=== PATIENT | male | born 1995 | race African-American/Black ===

== ENCOUNTER 2022-01-23 23:33 | Emergency (ER) | payer MEDICAID ==
[~2022-01-23] VITALS: Ht 185.4 cm; Wt 100.0 kg
[2022-01-24] MEDS ORDERED: TETRACAINE 0.5% OPHTH DROPS 4ML BOTHEYE ONE (00:15)
[2022-01-24] MEDS ORDERED: FLUORESCEIN SODIUM 1MG/STRIP BOTHEYE ONE (00:15)
[2022-01-24] MEDS ORDERED: HYDROCODONE/ACETAMINOPHEN 5/325MG TABLET PO ONE (00:45)
[2022-01-24 02:11] VITALS: BP 140/82
[2022-01-24] MEDS ORDERED: KETO5DRO37 EACHEYE (03:17)
[2022-01-24] MEDS ORDERED: OFLO5DRO EACHEYE (03:17)
== END 2022-01-24 03:27 | disposition home or self-care (01) ==
LOC: ER 23:33
DX: S05.01XA Injury of conjunctiva and corneal abrasion without foreign body, right eye, initial encounter (principal); H16.291 Other keratoconjunctivitis, right eye; Y08.89XA Assault by other specified means, initial encounter; Y93.89 Activity, other specified; Y92.89 Other specified places as the place of occurrence of the external cause
CPT/HCPCS: 99283

== ENCOUNTER 2023-02-06 15:45 | Emergency (ER) | payer MEDICAID ==
[~2023-02-06] VITALS: Ht 193 cm; Wt 116.0 kg
[~2023-02-06 15:45] MED LIST: KETO5DRO38 EACHEYE; OFLO5DRO EACHEYE
[2023-02-06 15:55] VITALS: BP 140/80
[2023-02-06 17:55] LABS: CLARITY URINE CLOUDY (CLEAR); COLOR URINE DARK YELLOW (YELLOW); KETONES URINE TRACE (NEGATIVE); LEUKOCYTE ESTERASE URINE 2+ (NEGATIVE); NITRITE URINE NEGATIVE (NEGATIVE); OCCULT BLOOD URINE 3+ (NEGATIVE); PROTEIN URINE 1+ (NEGATIVE)
[2023-02-06] MEDS ORDERED: CEFP200T13 MT (18:04)
== END 2023-02-06 18:33 | disposition home or self-care (01) ==
LOC: ER 15:45
DX: R30.0 Dysuria (principal); R31.9 Hematuria, unspecified
CPT/HCPCS: 81003; 87591; 99283

== ENCOUNTER 2023-02-24 16:19 | Emergency (ER) | payer MEDICAID ==
[~2023-02-24] VITALS: Ht 193 cm; Wt 112.3 kg
[~2023-02-24 16:19] MED LIST changes: +CEFP200T13 MT
[2023-02-24 16:38] VITALS: BP 119/71
[2023-02-24 18:25] LABS: CLARITY URINE TURBID (CLEAR); COLOR URINE YELLOW (YELLOW); KETONES URINE NEGATIVE (NEGATIVE); LEUKOCYTE ESTERASE URINE 2+ (NEGATIVE); NITRITE URINE NEGATIVE (NEGATIVE); OCCULT BLOOD URINE NEGATIVE (NEGATIVE); PROTEIN URINE NEGATIVE (NEGATIVE)
[2023-02-24] MEDS ORDERED: LIDOCAINE HCL 1% 20ML VIAL (Pyxis) INJ INFIL ONE (19:45)
[2023-02-24] MEDS ORDERED: IBUP-2028 MT (19:45)
[2023-02-24] MEDS ORDERED: CEFTRIAXONE SODIUM 500 MG/VIAL IM ONE (19:45)
[2023-02-24] MEDS ORDERED: CEPH500C2 MT (19:46)
[2023-02-24] MEDS ORDERED: DOXY100C5 MT (19:46)
[2023-02-27 04:07] LABS: NEISSERIA GONORRHOEAE NAA Negative (Negative)
== END 2023-02-24 20:00 | disposition home or self-care (01) ==
LOC: ER 16:19
DX: N39.0 Urinary tract infection, site not specified (principal); N47.1 Phimosis
CPT/HCPCS: 81003; 87086; 87491; 87591; 96372; 99283; J0696; J3490; Z7610

== ENCOUNTER 2023-03-19 01:42 | Emergency (ER) | payer MEDICAID ==
[~2023-03-19] VITALS: Ht 177.8 cm; Wt 90.0 kg
[~2023-03-19 01:42] MED LIST changes: +CEPH500C2 MT; +DOXY100C5 MT; +IBUP-2028 MT
[2023-03-19 01:45] VITALS: O2SAT 98
[2023-03-19] MEDS ORDERED: LORAZEPAM 2MG/ML CPJ IM ONE (02:15)
[2023-03-19] MEDS ORDERED: DIPHENHYDRAMINE 50MG/ML VIAL IM ONE (02:15)
[2023-03-19] MEDS ORDERED: HALOPERIDOL LACTATE 5MG/ML VIAL IM ONE (02:15)
[2023-03-19 02:53] LABS: BASOPHILS % 0.5 % (0.0-2.0); EOSINOPHILS % 0.1 % (0.0-5.0); HEMATOCRIT. 47.3 % (42.0-52.0); HEMOGLOBIN. 15.8 g/dL (14.0-18.0); LYMPHOCYTES % 24.5 % (20.0-50.0); MEAN CORPUSCULAR HEMOGLOBIN 26.9 pg (28.0-32.0); MEAN CORPUSCULAR VOLUME 80.6 fL (80.0-94.0); MEAN PLATELET VOLUME 7.9 fl (7.4-10.4); MONOCYTES % 10.4 % (2.0-8.0); NEUTROPHILS % 64.5 % (40.0-76.0); PLATELET 387 x1000/uL (130-400); RED BLOOD CELL COUNT 5.86 mill/uL (4.7-6.1); RED CELL DISTRIBUTION WIDTH 13.3 % (11.6-14.6)
[2023-03-19 03:03] LABS: CHLORIDE 108 mEq/L (98-107)
[2023-03-19 03:09] LABS: ETHANOL BLOOD < 10 mg/dL (-10)
[2023-03-19 03:43] LABS: *AMPHETAMINES SCREEN URINE PRESUMTIVE POSITIVE (NEGATIVE); *BARBITURATES SCREEN URINE NEGATIVE (NEGATIVE); *BENZODIAZEPINES SCREEN URINE PRESUMTIVE POSITIVE (NEGATIVE); *COCAINE SCREEN URINE NEGATIVE (NEGATIVE); CANNABINOID URINE SCREEN PRESUMTIVE POSITIVE (NEGATIVE); METHADONE URINE SCREEN NEGATIVE (NEGATIVE); OPIATES URINE SCREEN NEGATIVE (NEGATIVE); PHENCYCLIDINE URINE SCREEN NEGATIVE (NEGATIVE)
[2023-03-19 10:04] VITALS: BP 123/78; PULSE 82; RESP 15; TEMP 98.9
== END 2023-03-19 09:30 | disposition home or self-care (01) ==
LOC: ER 01:42
DX: F15.10 Other stimulant abuse, uncomplicated (principal); R45.1 Restlessness and agitation; F17.290 Nicotine dependence, other tobacco product, uncomplicated; F14.10 Cocaine abuse, uncomplicated; Z20.822 Contact with and (suspected) exposure to COVID-19
CPT/HCPCS: 80053; 80305; 80307; 80329; 80320; 85025; 36415; 93005; 96372; 99291; 87426; J1200; J1630; J2060; C9803; Z7610; G0480